=== PATIENT | male | born 1965 | race African-American/Black ===

== ENCOUNTER 2017-03-04 21:27 | Emergency (ER) | payer OTHER ==
[~2017-03-04] VITALS: Ht 172.7 cm; Wt 95.3 kg
[~2017-03-04 21:27] MED LIST: FLEXERIL10 MG PO; MEDROL DOSEPAK1 PAC PO; VICODIN5-300 PO
--- NOTE | 2017-03-04 22:30 | RADIOLOGY REPORT ---
EXAMINATION: XR KNEE, RIGHT CLINICAL INFORMATION: Right knee pain . Unable to bear weight. COMPARISON: None TECHNIQUE: Four views of the right knee. FINDINGS: Bones and soft tissues are normal. No fracture or joint effusion. Alignment is anatomic. Joint spaces are well maintained. No abnormal soft tissue calcification. IMPRESSION: Normal right knee.
[2017-03-04] MEDS ORDERED: MOBIC7.5 M1 PO (22:33)
[2017-03-04] MEDS ORDERED: HYDROCODON-ACE1 EAC2 PO (22:33)
--- NOTE | 2017-03-04 22:34 | ED UPPER/LOWER EXTREMITY COMPL ---
History of Present Illness General Chief Complaint: Lower Extremity Problems Stated Complaint: PT IS HAVING A PROBLEM WITH HIS RT KNEE Source: patient Exam Limitations: no limitations Vital Signs & Intake/Output Vital Signs & Intake/Output Vital Signs Date Time Temp Pulse Resp B/P B/P Pulse O2 O2 Flow FiO2 Mean Ox Delivery Rate 03/043 98.3 110 18 145/100 96 Room Air Allergies Coded Allergies: NO KNOWN ALLERGIES (08/07/15) Reconcile Medications CYCLOBENZAPRINE HCL (Flexeril) 10 MG TAB 1 TAB PO TID MUSCLE RELAXATION Hydrocodone/Acetaminophen (Hydrocodon-Acetaminophen 5-325) 5 MG-325 MG TABLET 1-2 TAB PO Q4-6 PRN PRN pain HYDROCODONE/ACETAMINOPHEN (Hydrocodon-Acetaminophen 5-325) 1 TAB TAB 1 TAB PO Q6 PRN PAIN Meloxicam (Mobic) 7.5 MG TABLET 1 TAB PO DAILY pain Methylprednisolone. (Medrol) 1 PAC PAC 1 PAC PO AD INFLAMMATION Triage Note: PT TO ER C/C RIGHT KNEE PAIN X 3 DAYS, WORSENING. NO KNOWN INJURY OR TRAUMA. UNABLE TO BEAR WEIGHT W/O SEVERE PAIN Triage Nurses Notes Reviewed? yes Onset: Abrupt Duration: day(s):, constant, continues in ED Timing: recent history Pain/Injury Location: Right: Knee. No Modifying Factors: none HPI: 51-year-old male comes into emergency room with complaints of right knee pain. Patient reports a few days ago while he was walking he had twisted his knee. He cannot think of anything of it at the time because he was experiencing no pain. He started with pain later that night and the pain got progressively worse. Some swelling to the knee. Denies any direct falls or trauma. Denies feeling any popping sensation. Pain is moderate to severe. Continuous. (CORINNE HOUGH) Past History Travel History Traveled to [place] past 21 day No Medical History Any Pertinent Medical History? see below for history Cardiovascular: hypertension Musculoskeletal: BULGING DISK Endocrine: diabetes Surgical History Surgical History: non-contributory Psychosocial History What is your primary language Korean Tobacco Use: Quit <30 days ago Family History Hx Contributory? No (CORINNE HOUGH) Review of Systems Review of Systems Constitutional: Reports: no symptoms. EENTM: Reports: no symptoms. Respiratory: Reports: no symptoms. Cardiovascular: Reports: no symptoms. Gastrointestinal/Abdominal: Reports: no symptoms. Genitourinary: Reports: no symptoms. Musculoskeletal: Reports: see HPI. Skin: Reports: no symptoms. Neurological/Psychological: Reports: no symptoms. Hematologic/Endocrine: Reports: no symptoms. Immunological: Reports: no symptoms. All Other Systems: Reviewed and Negative (CORINNE HOUGH) Physical Exam Physical Exam General Appearance: well developed/nourished, mild distress Head: atraumatic Eyes: Bilateral: normal appearance. Ears, Nose, Throat: normal ENT inspection, hearing grossly normal Neck: normal inspection Cardiovascular/Respiratory: no respiratory distress Back: normal inspection Knee Right: joint effusion, soft tissue tenderness, limited range of motion, MCL /LCL intact, unable to assess posterior anterior drawer secondary to pain, Neurologic/Tendon: normal sensation, normal motor functions, responds to pain, no evidence tendon injury, no pulse deficit Skin: intact, normal color, warm/dry Lymphatic: no anterior cervical jono (CORINNE HOUGH) Progress Differential Diagnosis: contusion, DVT, fracture, gout, septic arthritis, sprain , tendon injury, meniscal tear, ACL/PCL tear, bursitis, Plan of Care: Follow-up with orthopedic doctor. Weightbearing as tolerated. Return if any other concerns. Ice. Clinically looks well. No other complaints. Diagnostic Imaging: Viewed by Me: Radiology Read. Discussed w/RAD: Radiology Read. Radiology Impression: SERVICE DATE: 03/04/17 EXAM TYPE: RAD - XRY-KNEE COMPLETE RIGHT EXAMINATION: XR KNEE, RIGHT CLINICAL INFORMATION: Right knee pain . Unable to bear weight. COMPARISON: None TECHNIQUE: Four views of the right knee. FINDINGS: Bones and soft tissues are normal. No fracture or joint effusion. Alignment is anatomic. Joint spaces are well maintained. No abnormal soft tissue calcification. IMPRESSION: Normal right knee. (CORINNE HOUGH) Departure Departure Disposition: HOME OR SELF CARE Condition: Stable Clinical Impression Primary Impression: Right knee sprain Referrals: APPLE TURK MD (PCP/Family) LANI ELLINGTON MD Additional Instructions: Ice. Rest. Motrin for pain. Elevation. Follow-up with orthopedic doctor provided if not better in 3-5 days. If symptoms do not improve you'll require further evaluation with possible repeat x-rays as well as evaluation by inbound ingredient logistics specialist. Sprains can last anywhere from days to weeks. No high impact running or jumping if you have an ankle sprain or any type of lower extremity sprain. Return to normal activity only after symptoms have resolved. Please go over all results of today's visit with your primary care doctor. Contact your primary care doctor to let them know you were here in the emergency room. There may be nonspecific findings which may not be related to your visit today here in the emergency room but may require further evaluation and chronic monitoring by your primary care doctor. If you had a laceration today the chance of foreign body always remains. You should follow-up with your primary care doctor for recheck in 3-5 days for a wound check. If you had an x-ray done there is a chance that a fracture could have been missed on initial read and you should follow-up with your primary care doctor for repeat x-rays if symptoms persist. If your blood pressure was elevated here in the emergency room please have rechecked by her primary care doctor within the next 48 hours by your primary care doctor. If you were prescribed a narcotic here in the emergency room or any type of controlled substances you're not allowed to drive while taking this medication or operate any type of heavy machinery. Narcotics can make you feel lightheaded dizziness nausea and can cause constipation. You may need to curing pickling packer a stool softener. Thank you for choosing [facility] emergency room. Please return to the emergency room immediately if you have any other concerns worsening of symptoms. Departure Forms: Customer Survey General Discharge Information Prescriptions: Current Visit Scripts Meloxicam (Mobic) 1 TAB PO DAILY #5 TAB Hydrocodone/Acetaminophen (Hydrocodon-Acetaminophen 5-325) 1-2 TAB PO Q4-6 PRN PRN pain #10 TAB (COIRNNE HOUGH) PA/ACCOUNT ASSOCIATE Co-Sign Statement Statement: ED Attending supervision documentation- I saw and evaluated the patient. I have also reviewed all the pertinent lab results and diagnostic results. I agree with the findings and the plan of care as documented in the PA's/ACCOUNT ASSOCIATE's documentation. X I have reviewed the ED Record and agree with the PA's/ACCOUNT ASSOCIATE's documentation. [] Additions or exceptions (if any) to the PAs/ACCOUNT ASSOCIATE's note and plan are summarized below: [] (MERRILL VELASCO,MICHAEL) Procedures Splinting Location: right knee Pre-Made Type: knee imobilizer Splint Applied By: splint applied by me Pre-Proc Neuro Vasc Exam: normal Post-Proc Neuro Vasc Exam: normal (CORINNE HOUGH)
[2017-03-04 22:58] VITALS: BP 136/93
== END 2017-03-04 22:59 ==
LOC: ERH 21:27
DX: S83.91XA Sprain of unspecified site of right knee, initial encounter (principal); X50.9XXA Other and unspecified overexertion or strenuous movements or postures, initial encounter; Y93.01 Activity, walking, marching and hiking; Y92.9 Unspecified place or not applicable
CPT/HCPCS: 73562-RT